=== PATIENT | female | born 1970 | race American Indian/Alaskan Native ===

== ENCOUNTER 2019-03-02 11:20 | Emergency (ER) | payer OTHER ==
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
[2019-03-02] MEDS ORDERED: IBUPROFEN PO ONE (13:30)
[2019-03-02] MEDS ORDERED: PERCOCET 5/325 PO ONE (13:30)
[2019-03-02 14:10] VITALS: BP 141/94
== END 2019-03-02 14:08 | disposition home or self-care (01) ==
LOC: ED 11:20
DX: S39.012A Strain of muscle, fascia and tendon of lower back, initial encounter (principal); S16.1XXA Strain of muscle, fascia and tendon at neck level, initial encounter; R07.89 Other chest pain; I10 Essential (primary) hypertension; Z98.51 Tubal ligation status; Z90.710 Acquired absence of both cervix and uterus; Z79.899 Other long term (current) drug therapy; V49.59XA Passenger injured in collision with other motor vehicles in traffic accident, initial encounter; Y93.89 Activity, other specified; Y92.488 Other paved roadways as the place of occurrence of the external cause; Y99.8 Other external cause status
CPT/HCPCS: 71046; 72040; 72100; 93005; 93010; 99284